=== PATIENT | female | born 1940 | race Caucasian/White ===

== ENCOUNTER 2022-09-09 10:11 | Emergency (ER) | payer OTHER, MEDICAID ==
[~2022-09-09] VITALS: Ht 160 cm; Wt 67.6 kg
[2022-09-09 10:18] VITALS: BP 134/67
--- NOTE | 2022-09-09 10:50 | NUR ---
82/F WALKED IN C/O LOW BACK PAIN, HEADACHE, AND FACIAL PAIN S/P FALL @ 0600 WITNESSED BY FAMILY. DENIES LOC, DENIES BLOOD THINNER USE. AAO4, AMBULATORY, VITALS STABLE. PRESENTS WITH HEMATOMA TO THE NOSE AND THE FACE. NOT ACTIVELY BLEEDING. NKA PMH: DM, HTN, HDL, ANXIETY
--- NOTE | 2022-09-09 11:01 | NUR ---
BLOOD DRAWN, COVID AND FLU SWAB COLLECTED AND SENT TO LAB.
--- NOTE | 2022-09-09 11:07 | NUR ---
URINE COLLECTED AND SENT TO LAB
--- NOTE | 2022-09-09 11:08 | NUR ---
PT ON MONITOR. CALM AND RESTING
--- NOTE | 2022-09-09 11:18 | NUR ---
PT WENT TO XR
[2022-09-09 11:24] LABS: BASOPHILS % (AUTO) 0.3 % (0.0-2.0); EOSINOPHILS # (AUTO) 0.1 K/uL (0-0.4); EOSINOPHILS % (AUTO) 1.9 % (0.0-4.0); HEMATOCRIT 35.7 % (36-48); HEMOGLOBIN 12.3 g/dL (12.0-16.0); LYMPHOCYTES # (AUTO) 0.8 K/uL (2.5-16.5); LYMPHOCYTES % (AUTO) 10.8 % (20.5-51.1); MEAN CORPUSCULAR HEMOGLOBIN 33 pg (27-31); MEAN CORPUSCULAR HGB CONC 35 g/dL (33-37); MEAN CORPUSCULAR VOLUME 94.3 fL (80-94); MONOCYTES # (AUTO) 0.4 K/uL (0.8-1.0); MONOCYTES % (AUTO) 5.9 % (1.7-9.3); NEUTROPHILS % (AUTO) 81.1 % (42.2-75.2); PLATELET COUNT (AUTO) 186 K/uL (140-450); RED BLOOD CELL COUNT(AUTO) 3.78 MIL/uL (4.20-5.40); RED CELL DISTRIBUTION WIDTH 14.2 % (11.6-13.7); WHITE BLOOD COUNT (AUTO) 7.3 K/uL (4.8-10.8)
[2022-09-09 11:40] LABS: ALBUMIN 3.9 g/dL (3.4-5.0); ASPARTATE AMINOTRANSFERASE 24 U/L (15-37); CARBON DIOXIDE 30.4 mmol/L (21-32); CHLORIDE 105 mmol/L (98-107); CREATININE 0.6 mg/dL (0.6-1.3); GLUCOSE 113 mg/dL (74-106); POTASSIUM 4.4 mmol/L (3.5-5.1); SODIUM SERUM 142 mmol/L (136-145); TOTAL BILIRUBIN 0.5 mg/dL (0.0-1.0); UREA NITROGEN, BLOOD 19 mg/dL (7-18)
[2022-09-09] MEDS ORDERED: ACETAMINOPHEN 325 MG TAB PO ONE (12:40)
[2022-09-09] MEDS ORDERED: ACET-10509 PO (13:31)
[2022-09-09 14:03] VITALS: BP 150/81
--- NOTE | 2022-09-09 14:05 | NUR ---
pt dc'd home daughter, a/o times 4, nad, discharged with v/s stable. Written and verbal after care instructions given and explained. Patient verbalized understanding. Ambulatory with steady gait. All questions addressed prior to discharge. Advised to follow up with PMD. copies of radiology reports given to ptas requested
== END 2022-09-09 14:05 | disposition home or self-care (01) ==
LOC: MED 10:11
DX: S00.83XA Contusion of other part of head, initial encounter (principal); Z20.822 Contact with and (suspected) exposure to COVID-19; E11.9 Type 2 diabetes mellitus without complications; F41.9 Anxiety disorder, unspecified; I10 Essential (primary) hypertension; W22.03XA Walked into furniture, initial encounter; Y93.89 Activity, other specified; Y92.098 Other place in other non-institutional residence as the place of occurrence of the external cause; Y99.8 Other external cause status
CPT/HCPCS: 36415; 70450; 72100; 72125; 80053; 84484; 85025; 93005; 99285